=== PATIENT | male | born 1990 | race Caucasian/White ===

== ENCOUNTER 2025-06-30 08:00 | Outpatient (CLI) | payer BC | END 2025-06-30 10:00 | disposition home or self-care (01) | LOC: CSHULT 08:00 | PROVIDERS: ATTEND Student in an Organized Health Care Education/Training Program | DX: R79.89 Other specified abnormal findings of blood chemistry (principal); K76.0 Fatty (change of) liver, not elsewhere classified; K80.20 Calculus of gallbladder without cholecystitis without obstruction | CPT/HCPCS: 76705 ==